=== PATIENT | female | born 1975 ===

== ENCOUNTER 2017-06-19 13:56 | Emergency (ER) | payer OTHER ==
--- NOTE | 2017-06-19 13:53 | EDPHY ---
H & P HPI/ROS: CHIEF COMPLAINT: Dizzy, near-syncopal HISTORY OF PRESENT ILLNESS: The patient is a 41 y/o female arriving via EMS complaining of dizziness and near-syncopal while standing at work today. She began to feel her "brain pulsing". She felt nausea, no pain. She began struggling to maintain consciousness and needed to lie down. She never lost consciousness or vomited, but continues to feel poorly. She denies tunnel vision or blurred vision. She has no headache. She never felt confused, just scared and anxious. She denies recent illness and is normally healthy. She has not had rectal bleeding or dark stools. No recent vomiting or diarrhea. She believes that she has maintained normal hydration. Denies chance of as she has a Mirena IUD. REVIEW OF SYSTEMS: A ten point review of systems was performed and is negative with the exception of the items mentioned in the HPI. Past medical history: Denies, Mirena IUD - LMP 2007 Past surgical history: Denies Family history: Noncontributory Social history: Friend at bedside. Employed General Appearance: Alert. Vital signs reviewed. Eyes: Pupils equal and round, no conjunctival injection, no discharge. Anicteric. ENT, Mouth: Mucous membranes are moist, no oropharyngeal erythema or edema. Neck: No lymphadenopathy, supple. Respiratory: Lungs are clear to auscultation; no wheezes, rales, or rhonchi. Cardiovascular: Regular rate and rhythm; no murmur, rub, or gallop. Gastrointestinal: Abdomen is soft and nontender, no masses or organomegaly, bowel sounds normal. Skin: Warm and dry, no rashes on exposed skin, normal color. Back: Nontender to palpation over the thoracolumbar spine. No CVAT. Extremities: No lower extremity edema, no calf tenderness or swelling. Neurological: Alert and oriented. Moving all four extremities easily and equally. Tremulous. RACHANA. EOMI. Facial expressions symmetric. Tongue midline. 5/5 strength in major motor groups. Sensation intact to light touch over all 4 extremities. Psychiatric: Anxious affect. Constitutional: Initial Vital Signs Heart Rate 71 06/19/17 14:07 Blood Pressure 118/78 06/19/17 14:07 O2 Delivery Mode Room Air Allergies/Adverse Reactions: No Known Allergies Allergy (Unverified 06/19/17 14:25) Medical Decision Making ED Course/Re-evaluation: This is a healthy 41 y/o female who presents with dizziness, nausea, and a near- syncopal sensation that began around lunch today. She did not lose consciousness and denies other symptoms. She is anxious and tremulous on exam. Plan for IV, labs, EKG. The 12 lead EKG was interpreted by myself. Sinus arrhythmia. See hard copy and/ or "tracemaster" electronic copy for interpretation. Reassessed patient and discussed work up. Labs are unremarkable. She is feeling improved and ready to go home. I've recommended following up with her PCP in the next few days. Return precautions discussed. She is comfortable with this plan. Is not what caused her to feel presyncopal. There is no evidence of volume depletion/blood loss. She is not . She does have a sinus arrhythmia on her EKG but nothing that looks like a malignant or potentially dangerous rhythm. She is very mildly bradycardic with the rate of 57 but had a normal rate at the time that I examined her. Intervals are normal. - Data Points Laboratory Results: Laboratory Results 06/19/17 14:16 06/19/17 14:16 Medications Given: Discontinued Medications Ondansetron HCl (Zofran) 4 mg IVP EDNOW ONE Stop: 06/19/17 14:51 Last Admin: 06/19/17 14:52 Dose: 4 mg Departure - Departure Disposition: Home, Routine, Self-Care Clinical Impression: Pre-syncope Condition: Good Instructions: Near Syncope (ED) Additional Instructions: Increase fluid intake. Follow up with your primary care provider for unimproved symptoms over the next 1-2 days. Return to the ED for worsening of condition. Referrals: Patient,NotPresent [Unknown] - As per Instructions Brionna Mcfarland MD [Medical Doctor] - As per Instructions Report Scribed for: Cecilia Fernando Report Scribed by: Masha Linocln Date of Report: 06/19/17 Time of Report: 13:55 Physician Review and Approval Statement: 06/19/17 13:53 Portions of this note were transcribed by the medical record librarians teacher. I, Dr. Cecilia Fernando, personally performed the history, physical exam, and medical decision- making; and confirmed the accuracy of the information in the transcribed note.
[2017-06-19 14:20] LABS: % IMMATURE GRANULYOCYTES 0.3 % (0.0-1.1); ABSOLUTE IMMATURE GRANULOCYTES 0.02 10^3/uL (0.00-0.10); ADD DIFF? NO; ADD MORPH? NO; ADD SCAN? NO; ATYPICAL LYMPHOCYTE FLAG 30 (0-99); FRAGMENT RBC FLAG 0 (0-99); HEMOGLOBIN 15.9 g/dL (12.6-16.3); LEFT SHIFT FLG 0 (0-99); LIPEMIA HEMOLYSIS FLAG 90 (0-99); MEAN CELL HEMOGLOBIN 34.6 pg (27.9-34.1); MEAN CELL VOLUME 93.7 fL (81.5-99.8); MEAN PLATELET VOLUME 9.7 fL (8.7-11.7); PLATELET CLUMPS FLAG 0 (0-99); PLATELET COUNT 277 10^3/uL (150-400); RED BLOOD CELL COUNT 4.59 10^6/uL (4.18-5.33); RED CELL DISTRIBUTION WIDTH 11.8 % (11.5-15.2)
[2017-06-19 14:25] VITALS: RESP 16; TEMP 97.9
[2017-06-19 14:40] LABS: ANION GAP 15 mEq/L (8-16); CALCIUM 10.3 mg/dL (8.5-10.4); CARBON DIOXIDE 20 mEq/l (22-31); CHLORIDE 103 mEq/L (97-110); GLOMERULAR FILTRATION RATE > 60; GLUCOSE 108 mg/dL (70-100); POTASSIUM 4.2 mEq/L (3.5-5.2); SODIUM 138 mEq/L (134-144)
[2017-06-19] MEDS ORDERED: ONDANSETRON 4 MG/2 ML VIAL IVP ONE (14:50)
[2017-06-19] MEDS ORDERED: ONDANSETRON 4 MG/2 ML VIAL ONE (14:50)
--- NOTE | 2017-06-19 14:55 | CPEKG ---
Heart Rate: 57 RR Interval: 1053 P-R Interval: 164 QRSD Interval: 92 QT Interval: 456 QTC Interval: 444 P [place]: 53 QRS [place]: 63 T Wave [place]: 43 EKG Severity - OTHERWISE NORMAL ECG - EKG Impression: SINUS ARRHYTHMIA, RATE 46-66 Electronically Signed By: Orion Gomes 22-Jun-2017 11:54:01
[2017-06-19 15:50] VITALS: BP 121/86; PULSE 61; O2SAT 98
== END 2017-06-19 15:50 | disposition home or self-care (01) ==
DX: R55 Syncope and collapse (principal)
CPT/HCPCS: 96374; J2405